=== PATIENT | female | born 2005 | race Hispanic/Latino ===

== ENCOUNTER 2024-07-31 01:06 | Emergency (ER) | payer SELFPAY ==
[~2024-07-31] VITALS: Ht 167.6 cm; Wt 118.4 kg
[2024-07-31 01:35] VITALS: TEMP 98.7
[2024-07-31] MEDS: acetaMINOPHEN 500 MG TABLET PO ONE (01:54)
--- NOTE | 2024-07-31 02:30 | ERN ---
General Chief Complaint: Knee Injury/Swelling Stated Complaint: KNEE PAIN RIGHT Time Seen by MD: 01:07 Time Seen by Midlevel: 01:07 Source: patient History of Present Illness Initial Comments 19-year-old female presents to the emergency department due to left knee pain onset 6 hours [employer]. Patient denies any injuries or direct trauma to the knee. States she was standing and pivoted then feeling a pop. Patient is able to bear weight but reports pain with ambulation. Patient has not taken any medication prior to arrival. Denies previous injuries. Denies significant past medical history. Allergies: Coded Allergies: No Known Drug Allergies (Unverified Allergy, Unknown, 07/31/24) Past Medical History Past Medical History: No Pertinent History Past Surgical History: None Female( History) LMP: July 30, 2024 ROS Dictation Constitutional: Negative for fever,chills, and weight loss Eyes: Negative for injury, pain,redness, and discharge ENT: Negative for injury,pain or swelling Cardiovascular: Negative for chest pain, palpitations, and edema Respiratory: Negative for shortness of breath, cough, and wheezing, Abdomen/GI: Negative for abdominal pain, nausea, vomiting, diarrhea, and constipation Back: Negative for injury and pain : Negative for painful urination, bleeding or discharge MS/Extremity: Positive for left knee pain Negative for injury and deformity Skin: Negative for rash, and discoloration Neuro: Negative for headache, weakness, numbness, tingling, and seizure Psych: Negative for suicide ideation, homicidal ideation, and hallucinations Physical Exam Physical Exam Dictation General: awake, alert, no acute distress Head/Face: Normocephalic, atraumatic Eyes: PERRL, EOMI, normal conjunctiva ENT: oral cavity clear, oral mucosa moist Neck: Supple, normal range of motion Cardiovascular: RRR, normal S1/S2 Respiratory: CTAB, no respiratory distress Skin: Warm, dry, normal turgor, no rash MS/Extremity: Pulses equal, no cyanosis, neurovascular intact, FROM. Mild swelling noted to the left knee, mild tenderness to the medial aspect, no ecchymosis, no obvious deformities, limited range of motion restricted by pain. Neuro: COAx4, GCS 15, strength 5/5, CN 2-12 intact, normal cerebellar exam Psych: Normal behavior, mood, and affect normal MDM MDM: Differential diagnosis: ACL tear, meniscus injury, MCL injury, knee sprain Rationale: 19-year-old female presents to the emergency department due to left knee pain onset 6 hours [employer]. Patient denies any injuries or direct trauma to the knee. States she was standing and pivoted then feeling a pop. Patient is able to bear weight but reports pain with ambulation. Patient has not taken any medication prior to arrival. Denies previous injuries. Denies significant past medical history. Per physical examination patient has limited range of motion of the left knee restricted by pain, tenderness to the medial aspect of the knee, no obvious deformities, mild swelling noted, neurovascularly intact. X-rays obtained with no acute abnormalities noted. Mother and patient were educated on findings. P edie was placed on a knee immobilizer and given crutches. Advised to follow up with PCP. Return to the emergency department if any worsening symptoms. Patient verbalized understanding. Patient stable for discharge. There are no social concerns with this patient. I independently interpreted the test that were performed, results were reviewed by me and considered findings on radiology if ordered. Medical management and examination interpretation discussions were had by me with other qualified healthcare professionals as indicated for the patient's care. ED Course Orders Procedure Category Date Status Time Acetaminophen 500mg PHA 07/31/24 Complete Tab (Tylenol 500mg T 02:00 Knee 3vws Lt RAD 07/31/24 Taken 01:35 Crutches W/Training CPOE 07/31/24 Transmitted (Er) 02:25 Knee Immobilizer MG 07/31/24 In Process 02:25 Current Medications Medications (Trade) Dose Ordered Sig/Arcelia Route PRN Reason Start Time Stop Time Status Last Admin Dose Admin Acetaminophen (TYLenol 500MG TAB) 1,000 mg ONCE ONCE PO 07/31/24 02:00 07/31/24 02:01 DC 07/31/24 01:54 Vital Signs Date Time Temp Pulse Resp B/P (MAP) Pulse Ox O2 Delivery O2 Flow Rate FiO2 07/31/24 01:35 98.8 96 16 136/83 99 Room Air* 0 21 07/31/24 01:07 98.8 96 19 136/83 99 Room Air DX & DISP Disposition: Discharge Departure Impression: Primary Impression: Knee sprain Condition: Stable Additional Instructions: Discharge home. Rest. Follow up with primary care in 24 hours. Return to the ER for any acute changes or worsening symptoms. If any medications were prescribed take as directed. Okay to continue home medications unless otherwise discussed during your visit in the emergency room today. Patient was also advised to follow-up with primary care physician in 1 to 2 days for continued monitoring. Referrals: JEFF GARCIA (PCP) I performed the substantive portion of the visit. I have reviewed and personally made and approve the management plan that is documented in the notes by myself or the MONIE. I acknowledge full responsibility for the patient's management plan. MARCIA JEAN July 31, 2024 02:30
--- NOTE | 2024-07-31 02:49 | NUR ---
NEW IMMOBILIZER APPLIED TO LEFT KNEE AT THIS TIME. PT STATES FEELING COMFORTABLE WITH IT ON. CRUTCHES PROVIDED AND CRUTCHES DEMONSTRATED TO PT. PT VERBALIZED UNDERSTANDING OF HOW TO USE CRUTCHES.
[2024-07-31 02:58] VITALS: BP 161/98; PULSE 76; RESP 18; O2SAT 99
--- NOTE | 2024-07-31 09:35 | HMCIMG ---
Exam Type: KNEE 3VWS LT Clinical Information: pain Comparison: None Findings: The bone examination is unremarkable. No fractures or dislocations are seen. No radiopaque foreign bodies are noted. Soft tissues are preserved. IMPRESSION: Normal examination.
== END 2024-07-31 03:03 | disposition home or self-care (01) ==
LOC: EDH 01:06
DX: S83.92XA Sprain of unspecified site of left knee, initial encounter (principal); X58.XXXA Exposure to other specified factors, initial encounter; Y93.89 Activity, other specified; Y92.89 Other specified places as the place of occurrence of the external cause; Y99.8 Other external cause status
CPT/HCPCS: 29505; 73562; 99283

== ENCOUNTER 2024-10-11 10:36 | Emergency (ER) | payer SELFPAY ==
[~2024-10-11] VITALS: Ht 167.6 cm; Wt 117.9 kg
--- NOTE | 2024-10-11 10:49 | ERN ---
General Chief Complaint: Pelvic Pain Stated Complaint: PELVIC PAIN Time Seen by MD: 10:37 Time Seen by Midlevel: 10:37 Source: patient History of Present Illness Initial Comments 19-year-old female who presents to the emergency department due to pelvic pain onset five days. Patient reports pain is off and on, resolves with acetaminophen. Patient denies any dysuria, hematuria, frequency, diarrhea, fever, nausea, vomiting or further associated symptoms. Denies significant past medical history. Allergies: Coded Allergies: No Known Drug Allergies (Unverified Allergy, Unknown, 07/31/24) Past Medical History Past Medical History: No Pertinent History Past Surgical History: None Female( History) LMP: Oct 05, 2024 ROS Dictation Constitutional: Negative for fever,chills, and weight loss Eyes: Negative for injury, pain,redness, and discharge ENT: Negative for injury,pain or swelling Cardiovascular: Negative for chest pain, palpitations, and edema Respiratory: Negative for shortness of breath, cough, and wheezing, Abdomen/GI: Positive for pelvic pain. Negative for abdominal pain, nausea, vom iting, diarrhea, and constipation Back: Negative for injury and pain : Negative for painful urination, bleeding or discharge MS/Extremity: Negative for injury and deformity Skin: Negative for rash, and discoloration Neuro: Negative for headache, weakness, numbness, tingling, and seizure Psych: Negative for suicide ideation, homicidal ideation, and hallucinations Physical Exam Physical Exam Dictation General: awake, alert, no acute distress Head/Face: Normocephalic, atraumatic Eyes: PERRL, EOMI, normal conjunctiva ENT: oral cavity clear, oral mucosa moist Neck: Supple, normal range of motion Cardiovascular: RRR, normal S1/S2 Respiratory: CTAB, no respiratory distress, no rales or wheezes Abdomen: Soft, mild tenderness on palpation lower mid pelvic/suprapubic, non- distended, no guarding or rebound. Skin: Warm, dry, normal turgor, no rash MS/Extremity: Pulses equal, no cyanosis, neurovascular intact, FROM Neuro: COAx4, GCS 15, strength 5/5, CN 2-12 intact, normal cerebellar exam, normal gait Psych: Normal behavior, mood, and affect normal Results Laboratory and Microbiology Lab and Micro Result Laboratory Tests Test 10/11/24 11:07 10/11/24 12:30 White Blood Count 6.9 K/uL (4.8-10.8) Red Blood Count 4.61 MIL/uL (4.00-5.50) Hemoglobin 13.4 g/dL (12.0-16.0) Hematocrit 39.0 % (36-48) Mean Corpuscular Volume 84.6 fL (80-100) Mean Corpuscular Hemoglobin 29.1 pg (27.0-33.0) Mean Corpuscular Hemoglobin Concent 34.4 g/dL (32.0-36.0) Red Cell Distribution Width 12.1 % (11.0-15.5) Platelet Count 298 K/uL (130-400) Mean Platelet Volume 9.1 fL (7.5-10.5) Immature Granulocyte % (Auto) 0.1 % (0-1) Neutrophils (%) (Auto) 63.4 % (40.0-77.0) Lymphocytes (%) (Auto) 26.6 % (21.0-51.0) Monocytes (%) (Auto) 7.7 % (3.0-13.0) Eosinophils (%) (Auto) 1.6 % (0.0-8.0) Basophils (%) (Auto) 0.6 % (0.0-5.0) Neutrophils # (Auto) 4.4 K/uL (1.8-7.7) Lymphocytes # (Auto) 1.8 K/uL (1.0-4.8) Monocytes # (Auto) 0.5 K/uL (0.1-1.0) Eosinophils # (Auto) 0.11 K/uL (0.00-0.70) Basophils # (Auto) 0.04 K/uL (0.00-0.20) Absolute Immature Granulocyte (auto 0.01 K/uL (0-1) Nucleated Red Blood Cells 0.0 % (0.0-0.19) Sodium Level 140 mmol/L (136-145) Potassium Level 4.0 mmol/L (3.5-5.1) Chloride Level 104 mmol/L (101-111) Carbon Dioxide Level 31 mmol/L (21-32) Blood Urea Nitrogen 14 mg/dL (7-18) Creatinine 0.6 mg/dL (0.5-1.0) Glomerular Filtration Rate Calc 131 mL/min (>90) Random Glucose 97 mg/dL (70-105) Total Calcium 8.9 mg/dL (8.5-10.1) Urine Color LIGHT-YELLOW (YELLOW) Urine Appearance CLEAR (CLEAR) Urine pH 7.0 (5.0-8.0) Urine Specific [place] 1.009 (1.001-1.031) Urine Protein NEGATIVE mg/dL (NEGATIVE) Urine Glucose (UA) NEGATIVE mg/dL (NEGATIVE) Urine Ketones NEGATIVE mg/dL (NEGATIVE) Urine Occult Blood NEGATIVE (NEGATIVE) Urine Nitrate NEGATIVE (NEGATIVE) Urine Bilirubin NEGATIVE mg/dL (NEGATIVE) Urine Urobilinogen 0.2 mg/dL (0.2-1.0) Urine Leukocyte Esterase NEGATIVE Erika/uL Urine RBC 2-5 /HPF (0-1) H Urine WBC 0-1 /HPF (0-1) Urine Squamous Epithelial Cells RARE /HPF (0-2) Urine Bacteria None /HPF (None Seen) Urine HCG, Qualitative NEGATIVE (NEGATIVE) Labs Reviewed?: Yes EKG/XRAY/US/CT/MRI Ultrasound Comment REASON: Pelvic pain ORDERING PHYSICIAN: MARCIA JEAN PROCEDURE: PELVCOMP - US PELVIC NON-OB COMP EXAM: US Pelvis, Complete. CLINICAL HISTORY: Pelvic pain TECHNIQUE: Transabdominal pelvic ultrasound (complete) with image documentation. COMPARISON: None provided. FINDINGS: ENDOMETRIUM: Normal thickness measures 4.0 mm. UTERUS/CERVIX: The uterus appears within normal limits measures 6 x 2.3 x 4 cm. No uterine fibroid or other mass evident. RIGHT OVARY: Obscured. LEFT OVARY: There appears to be normal Doppler flow on transabdominal images, measures 1.6 x 0.9 x 1.9 cm. No abnormal mass. FREE FLUID: No free fluid. IMPRESSION: 1. No acute pelvic pathology. /[place] DICTATED BY: CJ LLOYD Jr., MD DATE: 10/11/24 1455 [facility] MDM: Differential diagnosis: UTI, pelvic cramping, ovarian torsion Rationale: 19-year-old female who presents to the emergency department due to pelvic pain onset five days. Patient reports pain is off and on, resolves with acetaminophen. Patient denies any dysuria, hematuria, frequency, diarrhea, fever, nausea, vomiting or further associated symptoms. Denies significant past medical history. CBC and chemistries nonspecific. UA negative for urinary tract infection. Pelvic ultrasound obtained indicating no acute pelvic pathology. Patient was administered ketorolac in the ED. she was educated on findings and diagnosis. Advised to follow up with PCP. Return to the emergency department if any worsening symptoms. Patient verbalized understanding. Patient stable for discharge. There are no social concerns with this patient. I independently interpreted the test that were performed, results were reviewed by me and considered findings on radiology if ordered. Medical management and examination interpretation discussions were had by me with other qualified healthcare professionals as indicated for the patient's care. ED Course Orders Procedure Category Date Status Time Cbc With Differential LAB 10/11/24 Complete 10:45 Basic Metabolic Panel LAB 10/11/24 Complete 10:45 Urinalysis LAB 10/11/24 Complete W/Microscopic 10:45 ,Urine Test LAB 10/11/24 Complete 10:45 Us Pelvic Non-Ob Comp US 10/11/24 Resulted 10:45 Ketorolac PHA 10/11/24 Complete Tromethamine 15mg/Ml 13:30 Current Medications Medications (Trade) Dose Ordered Sig/Arcelia Route PRN Reason Start Time Stop Time Status Last Admin Dose Admin Ketorolac Tromethamine (toRADol) 15 mg ONCE ONCE IM 10/11/24 13:30 10/11/24 13:31 DC 10/11/24 13:36 Vital Signs Date Time Temp Pulse Resp B/P (MAP) Pulse Ox O2 Delivery O2 Flow Rate FiO2 10/11/24 13:41 98.2 72 16 125/76 98 Room Air* 0 10/11/24 11:49 98.2 76 16 125/76 98 Room Air* 0 10/11/24 10:41 95.4 78 16 128/81 96 Room Air* 0 21 10/11/24 10:37 98.2 78 16 128/81 96 Room Air 0 DX & DISP Disposition: Discharge Departure Impression: Primary Impression: Pelvic pain Condition: Stable Additional Instructions: Discharge home. Rest. Follow up with primary care in 24 hours. Return to the ER for any acute changes or worsening symptoms. If any medications were prescribed take as directed. Okay to continue home medications unless otherwise discussed during your visit in the emergency room today. Patient was also advised to follow-up with primary care physician in 1 to 2 days for continued monitoring. Referrals: SELF,REFERRAL (PCP) I performed the substantive portion of the visit. I have reviewed and personally made and approve the management plan that is documented in the notes by myself or the MONIE. I acknowledge full responsibility for the patient's management plan. MARCIA JEAN Oct 11, 2024 10:49
[2024-10-11 11:14] LABS: IMMATURE GRANULOCYTE ABSOLUTE 0.01 K/uL (0-1); NUCLEATED RED BLOOD CELLS 0.0 % (0.0-0.19); PLATELET COUNT (AUTO) 298 K/uL (130-400); RED BLOOD CELL COUNT(AUTO) 4.61 MIL/uL (4.00-5.50); RED CELL DISTRIBUTION WIDTH 12.1 % (11.0-15.5); WHITE BLOOD COUNT (AUTO) 6.9 K/uL (4.8-10.8)
[2024-10-11 11:20] LABS: CREATININE 0.6 mg/dL (0.5-1.0); GLOMERULAR FILTR. RATE CALC 131.0 mL/min (>90); GLUCOSE,RANDOM 97.0 mg/dL (70-105); SODIUM SERUM 140.0 mmol/L (136-145); UREA NITROGEN, BLOOD 14.0 mg/dL (7-18)
--- NOTE | 2024-10-11 11:47 | NUR ---
PT PENDING RETURN FROM RADIOLOGY TO COMPLETE PRIMARY ASSESMENT
[2024-10-11 12:49] LABS: APPEARANCE,URINE CLEAR (CLEAR); GLUCOSE, URINE (UA) NEGATIVE (NEGATIVE); LEUKOCYTE ESTERASE ,URINE NEGATIVE Leu/uL (NEGATIVE); NITRATE,URINE NEGATIVE (NEGATIVE); OCCULT BLOOD,URINE NEGATIVE (NEGATIVE)
[2024-10-11 12:59] LABS: HCG,QUALITATIVE URINE NEGATIVE (NEGATIVE)
[2024-10-11 13:02] LABS: SQUAMOUS EPITHELIAL CELL,UR RARE /HPF (0-2)
[2024-10-11 13:41] VITALS: BP 125/76; PULSE 72; RESP 16; TEMP 98.3; O2SAT 98
--- NOTE | 2024-10-11 13:53 | HMCIMG ---
EXAM: US Pelvis, Complete. CLINICAL HISTORY: Pelvic pain TECHNIQUE: Transabdominal pelvic ultrasound (complete) with image documentation. COMPARISON: None provided. FINDINGS: ENDOMETRIUM: Normal thickness measures 4.0 mm. UTERUS/CERVIX: The uterus appears within normal limits measures 6 x 2.3 x 4 cm. No uterine fibroid or other mass evident. RIGHT OVARY: Obscured. LEFT OVARY: There appears to be normal Doppler flow on transabdominal images, measures 1.6 x 0.9 x 1.9 cm. No abnormal mass. FREE FLUID: No free fluid. IMPRESSION: 1. No acute pelvic pathology. /[place]
== END 2024-10-11 13:45 | disposition home or self-care (01) ==
LOC: EDH 10:36
DX: R10.2 Pelvic and perineal pain (principal)
CPT/HCPCS: 99285; 76856; 80048; 85025; 81001; 81025; 36415; 96372; J1885

== ENCOUNTER 2024-10-14 17:59 | Emergency (ER) | payer SELFPAY ==
[~2024-10-14] VITALS: Ht 165.1 cm; Wt 117.9 kg
--- NOTE | 2024-10-14 18:28 | ERN ---
ED Note History of Present Illness Stated Complaint: PAIN IN PELVIS AND BACK Chief Complaint: Abdominal Pain Time Seen by MD: 18:01 Time Seen by Midlevel: 18:01 Dictation: The patient is a 19your female with no past medical history who presents to the emergency department with complaints of mid low back pain onset Friday. Patient reports also suprapubic abdominal pain. Patient reports that she had a fall week ago. Denies any urinary or fecal incontinence, denies any saddle anesthesia. Patient was seen here on Friday and had a negative exam and was discharged. Patient denies any fevers, nausea or vomiting, diarrhea or consti pation. Denies any urinary discomfort. Allergies: Coded Allergies: No Known Drug Allergies (Unverified Allergy, Unknown, 07/31/24) Past Medical History Past Medical History: No Pertinent History Surgical History: None LMP: Sep 25, 2024 RN Note Reviewed/Agreed w/PFSH: Yes Review of System Dictation Constitutional: Negative for fever,chills, and weight loss Eyes: Negative for injury, pain,redness, and discharge ENT: Negative for injury,pain or swelling Cardiovascular: Negative for chest pain, palpitations, and edema Respiratory: Negative for shortness of breath, cough, and wheezing, Abdomen/GI: Negative for nausea, vomiting, diarrhea, and constipation positive for abdominal pain Back: Negative for injury and pain : Negative for injury, bleeding and discharge positive for low back pain MS/Extremity: Negative for injury and deformity Skin: Negative for rash, and discoloration Neuro: Negative for headache, weakness, numbness, tingling, and seizure Psych: Negative for suicide ideation, homicidal ideation, and hallucinations Initial Vital Sign VS Vital Signs Date Time Temp Pulse Resp B/P (MAP) Pulse Ox O2 Delivery O2 Flow Rate FiO2 10/14/24 18:01 97.9 80 16 138/59 Room Air 0 10/14/24 18:30 98 21 Physical Exam Dictation Vital Signs reviewed General Appearance: Alert, oriented x 3, no acute distress, well developed, nourished. Head and Face: non-traumatic. Eyes: PERRL, pink conjunctivas, eyelid no trauma, anterior chamber with arcus senilis. Ears: Pinnas intact and no signs of trauma or erythema ear canals clear and no d ischarge TM no erythema Nose: No discharge, no bleeding. Oropharynx: Mouth normal, tongue pink. pharynx clear,no erythema, tonsils no exudates, no abscesses noted, mucous membrane moist Neck: Supple, non-tender, no thyromegaly, no masses, no JVD, no bruits Breast:Deferred Chest:No tenderness, no crepitus, no paradoxical movement, no retractions Lungs:Clear, well-ventilated, symmetric, no rales, no wheezing, no rhonchi, no stridor, good breath sounds bilaterally Heart: Regular rate, regular rhythm, no murmur, no gallops Vascular: no peripheral edema, Abdomen: Soft, positive bowel sounds, nondistended, no guarding, nontender, no rebound, no masses no hepatomegaly, no splenomegaly, no Max's sign, no hernias. Rectal: Deferred Genital: Deferred Neurological: Normal speech, motor function intact, sensory function intact Musculoskeletal: Neck nontender, full range of motion, back nontender, full range of motion, Extremities: nontender, full range of motion Skin: Color pink, dry, no turgor, no rash, no lacerations, no abrasions, no contusions. Lymphatic: Deferred Results (Laboratory/Radiology) Laboratory/Radiology Laboratory Tests Test 10/14/24 18:25 Urine Color LIGHT-YELLOW (YELLOW) Urine Appearance CLEAR (CLEAR) Urine pH 7.0 (5.0-8.0) Urine Specific [place] 1.028 (1.001-1.031) Urine Protein 10 mg/dL (NEGATIVE) H Urine Glucose (UA) NEGATIVE mg/dL (NEGATIVE) Urine Ketones 20 mg/dL (NEGATIVE) H Urine Occult Blood SMALL (NEGATIVE) H Urine Nitrate NEGATIVE (NEGATIVE) Urine Bilirubin NEGATIVE mg/dL (NEGATIVE) Urine Urobilinogen 2.0 mg/dL (0.2-1.0) H Urine Leukocyte Esterase NEGATIVE Erika/uL Urine RBC 6-10 /HPF (0-1) H Urine WBC 2-5 /HPF (0-1) H Urine Squamous Epithelial Cells MOD /HPF (0-2) Urine Bacteria None /HPF (None Seen) Urine HCG, Qualitative NEGATIVE (NEGATIVE) REASON: lower abd pain, back pain ORDERING PHYSICIAN: FLORES KO PROCEDURE: ABD PEL WO - CT ABDOMEN/PELVIS W/O CONTRAST EXAM: CT Abdomen and Pelvis Without IV contrast CLINICAL HISTORY: lower abd pain, back pain TECHNIQUE: Axial computed tomography images of the abdomen and pelvis without intravenous contrast. CONTRAST: No IV contrast. COMPARISON: None provided. FINDINGS: LUNG BASES: The lung bases appear clear. No pleural effusions are seen. LIVER: Unremarkable. GALLBLADDER AND BILE DUCTS: The gallbladder appears within normal limits. No radioopaque gallstones are seen. No biliary ductal dilatation is evident. PANCREAS: Unremarkable. SPLEEN: Unremarkable. ADRENAL GLANDS: Unremarkable. KIDNEYS, URETERS, AND BLADDER: The kidneys appear within normal limits. There is no hydronephrosis or hydroureter. 4 mm nonobstructing left intrarenal calculus. STOMACH AND BOWEL: Unremarkable appearance of the stomach and bowel. No evidence of bowel obstruction. No evidence suggesting enteritis or colitis. Stool throughout the large intestines APPENDIX: No evidence of acute appendicitis on CT examination. PERITONEUM: No free fluid. No free air. LYMPH NODES: No lymphadenopathy is evident. REPRODUCTIVE: Unremarkable as visualized. VASCULATURE: No evidence of abdominal aortic aneurysm. BONES: No aggressive appearing osseous lesion. No acute osseous pathology evident. IMPRESSION: No acute intra-abdominal or pelvic abnormality. /[place] Labs Reviewed?: Yes ED Course ED Course Orders Procedure Category Date Status Time Urinalysis Profile LAB 10/14/24 Complete 18:20 ,Urine Test LAB 10/14/24 Complete 18:20 Cyclobenzaprine Hcl PHA 10/14/24 Complete (Cyclobenzaprine Hcl 18:30 Ct Abdomen/Pelvis W/O CT 10/14/24 Resulted Contrast 18:40 Current Medications Medications (Trade) Dose Ordered Sig/Arcelia Route PRN Reason Start Time Stop Time Status Last Admin Dose Admin Cyclobenzaprine HCl (Cyclobenzaprine HCl) 10 mg ONCE ONCE PO 10/14/24 18:30 10/14/24 18:31 DC 10/14/24 18:32 Vital Signs Date Time Temp Pulse Resp B/P (MAP) Pulse Ox O2 Delivery O2 Flow Rate FiO2 10/14/24 19:00 97.9 95 18 117/71 97 Room Air* 0 10/14/24 18:30 83 18 98 Room Air* 0 10/14/24 18:01 97.9 80 16 138/59 Room Air 0 Medical Decision Making MDM The patient is a 19your female with no past medical history who presents to the emergency department with complaints of mid low back pain onset Friday. Patient reports also suprapubic abdominal pain. Patient reports that she had a fall week ago. Denies any urinary or fecal incontinence, denies any saddle anesthesia. Patient was seen here on Friday and had a negative exam and was discharged. Patient denies any fevers, nausea or vomiting, diarrhea or constipation. Denies any urinary discomfort. Urinalysis showed a no leukocyte esterase or nitrites. CT abdomen showed a 4 mm left intrarenal stone with no hydronephrosis or hydroureter, colonic stool. On physical exam patient is in no acute distress, nontoxic appearance. Lab results and imaging discussed with mother who patient who agreed to follow up with PCP. Differential diagnosis: Lumbar fracture, lumbar sprain, UTI Need for hospitalization: Patient does not meet criteria for hospitalization. There are no social concerns with this patient. DX & DISP Disposition: Discharge Departure Impression: Primary Impression: Constipation Additional Impression: Lumbar strain Condition: Stable Scripts Cyclobenzaprine HCl (Flexeril) 10 Mg Tab 10 MG PO TID for muscle sstiffness, #14 TAB 0 Refills Prov: FLORES KO SACK KEEPER 10/14/24 Lactulose (Lactulose) 10 Gram/15 Ml Solution 30 ML PO BID for constipation, #500 ML 0 Refills Prov: FLORES KO SACK KEEPER 10/14/24 Additional Instructions: Please follow up with the primary doctor in 1-2 days. Drink plenty of fluids and take your medications as prescribed. If anything worsens please return to ER. FOLLOW-UP WITH PRIMARY CARE PROVIDER IN 1 TO 2 DAYS. TAKE MEDICATIONS DIRECTED HERE IN THE EMERGENCY ROOM. OKAY TO CONTINUE HOME MEDICATIONS UNLESS OTHERWISE DISCUSSED DURING YOUR VISIT IN THE EMERGENCY ROOM TODAY. RETURN TO [facility] EMERGENCY ROOM IF SYMPTOMS WORSEN OR IF THERE IS NO IMPROVEMENT. CALL 911 IF YOU NEED IMMEDIATE ASSISTANCE. TAKE TYLENOL [id number] NEEDED AND IF NO CONTRAINDICATIONS ARE PRESENT. INCREASE ORAL HYDRATION. A WOUND CULTURE OR URINE CULTURE WAS ORDERED HERE IN THE EMERGENCY ROOM DEPARTMENT PLEASE FOLLOW-UP WITH PRIMARY CARE PROVIDER AND ADVISE THEM TO GET REPEAT PORTS FROM OUR FACILITY. IF YOU HAD ANY ARTHUR WRAP/SPLINTS THAT WERE APPLIED HERE, PLEASE DO NOT REMOVE THEM UNTIL YOU SEE YOUR PRIMARY CARE OR SPECIALTY. Referrals: SELF,REFERRAL (PCP) Time of Disposition: 20:31 I have reviewed the case, and I agree with, Diagnosis and Plan FLORES KO [facility] Oct 14, 2024 18:28
[2024-10-14] MEDS: CYCLOBENZAPRINE HCL 10 MG TABLET PO ONE (18:32)
[2024-10-14 18:33] LABS: APPEARANCE,URINE CLEAR (CLEAR); GLUCOSE, URINE (UA) NEGATIVE (NEGATIVE); LEUKOCYTE ESTERASE ,URINE NEGATIVE Leu/uL (NEGATIVE); NITRATE,URINE NEGATIVE (NEGATIVE); OCCULT BLOOD,URINE SMALL (NEGATIVE)
[2024-10-14 18:35] LABS: ADD UA MICROSCOPIC YES; HCG,QUALITATIVE URINE NEGATIVE (NEGATIVE)
[2024-10-14 18:37] LABS: SQUAMOUS EPITHELIAL CELL,UR MOD /HPF (0-2)
[2024-10-14 19:00] VITALS: O2SAT 97
--- NOTE | 2024-10-14 19:48 | HMCIMG ---
EXAM: CT Abdomen and Pelvis Without IV contrast CLINICAL HISTORY: lower abd pain, back pain TECHNIQUE: Axial computed tomography images of the abdomen and pelvis without intravenous contrast. CONTRAST: No IV contrast. COMPARISON: None provided. FINDINGS: LUNG BASES: The lung bases appear clear. No pleural effusions are seen. LIVER: Unremarkable. GALLBLADDER AND BILE DUCTS: The gallbladder appears within normal limits. No radioopaque gallstones are seen. No biliary ductal dilatation is evident. PANCREAS: Unremarkable. SPLEEN: Unremarkable. ADRENAL GLANDS: Unremarkable. KIDNEYS, URETERS, AND BLADDER: The kidneys appear within normal limits. There is no hydronephrosis or hydroureter. 4 mm nonobstructing left intrarenal calculus. STOMACH AND BOWEL: Unremarkable appearance of the stomach and bowel. No evidence of bowel obstruction. No evidence suggesting enteritis or colitis. Stool throughout the large intestines APPENDIX: No evidence of acute appendicitis on CT examination. PERITONEUM: No free fluid. No free air. LYMPH NODES: No lymphadenopathy is evident. REPRODUCTIVE: Unremarkable as visualized. VASCULATURE: No evidence of abdominal aortic aneurysm. BONES: No aggressive appearing osseous lesion. No acute osseous pathology evident. IMPRESSION: No acute intra-abdominal or pelvic abnormality. /Kennett
[2024-10-14] MEDS ORDERED: LACT-441 PO (20:32)
[2024-10-14] MEDS ORDERED: CYCL10TA16 PO (20:32)
[2024-10-14 20:55] VITALS: BP 121/53; PULSE 95; RESP 18; TEMP 97.9
== END 2024-10-14 20:56 | disposition home or self-care (01) ==
LOC: EDH 17:59
DX: S39.012A Strain of muscle, fascia and tendon of lower back, initial encounter (principal); K59.00 Constipation, unspecified; X58.XXXA Exposure to other specified factors, initial encounter; Y93.89 Activity, other specified; Y92.89 Other specified places as the place of occurrence of the external cause; Y99.8 Other external cause status
CPT/HCPCS: 74176; 81001; 81025; 99284